=== PATIENT | male | born 1975 | race Caucasian/White ===

== ENCOUNTER 2017-09-12 21:40 | Emergency (ER) | payer OTHER ==
[2017-09-12 22:04] LABS: MUDS CUTOFF CONCENTRATIONS CUTOFF CONC BELOW:
[2017-09-12 22:06] LABS: BILIRUBIN,URINE NEGATIVE (NEGATIVE); GLUCOSE, URINE (UA) NEGATIVE (NEGATIVE); KETONES,URINE (UA) NEGATIVE (NEGATIVE); LEUKOCYTE ESTERASE, URINE NEGATIVE (NEGATIVE); NITRITE,URINE NEGATIVE (NEGATIVE); OCCULT BLOOD,URINE NEGATIVE (NEGATIVE); PROTEIN,URINE NEGATIVE (NEGATIVE); UROBILINOGEN,URINE 0.2 (NORMAL) E.U./dL (NORMAL)
[2017-09-12 22:08] LABS: CLARITY,URINE CLEAR (CLEAR)
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
[2017-09-12 22:16] LABS: BASOPHILS % (AUTO) 0.5 %; EOSINOPHILS # (AUTO) 0.1 10^3/uL (0.0-0.7); EOSINOPHILS % (AUTO) 2.7 %; HGB - HEMOGLOBIN 15.1 g/dL (14.0-18.0); LYMPHOCYTES # (AUTO) 2.1 10^3/uL (1.5-3.5); LYMPHOCYTES % (AUTO) 40.6 %; MEAN CORPUSCULAR HEMOGLOBIN 31.7 pg (27.0-31.0); MEAN CORPUSCULAR HGB CONC 34.1 g/dL (32.0-36.0); MEAN PLATELET VOLUME 9.5 fL (7.4-11.4); MONOCYTES # (AUTO) 0.4 10^3/uL (0.0-1.0); MONOCYTES % (AUTO) 7.8 %; NEUTROPHILS # (AUTO) 2.5 10^3/uL (1.5-6.6); NEUTROPHILS % (AUTO) 48.4 %; PLT - PLATELET COUNT 154 10^3/uL (130-450); RED BLOOD COUNT 4.77 10^6/uL (4.70-6.10); RED CELL DISTRIBUTION WIDTH 12.5 % (12.0-15.0); WHITE BLOOD COUNT 5.2 x10^3/uL (4.8-10.8)
[2017-09-12 22:17] LABS: AMPHETAMINE SCREEN,URINE NEGATIVE (NEGATIVE); BENZODIAZEPINES SCREEN, URINE NEGATIVE (NEGATIVE); COCAINE SCREEN URINE NEGATIVE (NEGATIVE); METHADONE SCREEN, URINE NEGATIVE (NEGATIVE); METHAMPHETAMINES SCREEN, URINE NEGATIVE (NEGATIVE); OPIATE SCREEN, URINE NEGATIVE (NEGATIVE); TRICYCLIC ANTIDEPRESSANT,URINE NEGATIVE (NEGATIVE)
[2017-09-12 22:18] LABS: OXYCODONE SCREEN, URINE NEGATIVE (NEGATIVE); PROPOXYPHENE SCREEN, URINE NEGATIVE (NEGATIVE)
[2017-09-12 22:49] LABS: ALBUMIN 4.3 g/dL (3.2-5.5); ALBUMIN/GLOBULIN RATIO 1.4 (1.0-2.2); ALKALINE PHOSPHATASE 41 IU/L (42-121); ALT ALANINE AMINOTRANSFERASE 15 IU/L (10-60); AST ASPARTATE AMINOTRANSFERASE 18 IU/L (10-42); BILIRUBIN,TOTAL 0.8 mg/dL (0.2-1.0); BUN - BLOOD UREA NITROGEN 15 mg/dL (6-20); CALCIUM 9.1 mg/dL (8.5-10.3); CARBON DIOXIDE - CO2 25 mmol/L (21-32); CHLORIDE 103 mmol/L (101-111); GFR - MDRD 82 (>89); GLUCOSE 88 mg/dL (70-100); LIPASE 31 U/L (22-51); SALICYLATE < 6.0 mg/dL; SODIUM 139 mmol/L (135-145); TOTAL PROTEIN 7.3 g/dL (6.7-8.2)
[2017-09-12 22:50] LABS: ACETAMINOPHEN < 10 ug/mL (10-30)
[2017-09-13 09:40] VITALS: BP 147/83
== END 2017-09-13 09:53 ==
LOC: EDUNIT# → ED 21:40
DX: R45.851 Suicidal ideations (principal); F32.9 Major depressive disorder, single episode, unspecified
CPT/HCPCS: 36415; 80053; 80306; 80307; 80320; 80329; 81001; 81003; 83690; 85025; 87086; 99283; 99284; 99285

== ENCOUNTER 2019-03-19 05:38 | Emergency (ER) | payer OTHER ==
--- NOTE | 2019-03-19 05:47 | ED Physician Documentation ---
PD HPI OPHTHO - Stated complaint Stated Complaint: RT EYE PAIN/REDNESS - History obtained from History obtained from: Patient - History of Present Illness Timing - onset: How many days ago (2) Timing - details: Gradual onset Location: Right Quality / character: Other (FB sensation) Associated symptoms: Redness, FB sensation Contributing factors: No: UV light (welding etc), Blunt trauma, Penetrating trauma, Wears glasses, Wears contacts Similar symptoms before: Has not had sx before Recently seen: Not recently seen - Additional information Additional information: c/o right eye FB sensation x 2 days. no injury and no recall of FB getting into the eye, although he does note that he was using chainsaw to cut wood 2 days ago prior to symptom onset. He was wearing eye protection. denies change in vision Review of Systems Eyes: reports: Irritation, Other (right eye FB sensation). denies: Loss of vision, Decreased vision, Photophobia, Discharge PD PAST MEDICAL HISTORY - Past Medical History Respiratory: Pneumonia - Past Surgical History Past Surgical History: No - Present Medications Home Medications: Ambulatory Orders Medication Instructions Recorded Confirmed Acetaminophen [Tylenol] 650 mg PO Q6H PRN 03/18/13 03/18/13 Ibuprofen [Motrin] 800 mg PO Q8H PRN 03/18/13 03/18/13 Multivitamin W/Minerals [Theragran 1 each PO DAILY 03/18/13 03/18/13 M] Prednisone 60 mg PO DAILY #12 tablet 03/18/13 guaiFENesin LIQUID [Robitussin] 100 mg PO Q6H 03/18/13 03/18/13 guaiFENesin/CODEINE [Robitussin AC] 10 ml PO Q6H PRN #120 ml 03/18/13 Hydrocodone/Acetaminophen 1 - 2 each PO Q6H PRN #10 tablet 03/19/19 [Hydrocodon-Acetaminophen 5-325] - Allergies Allergies/Adverse Reactions: Allergies Allergy/AdvReac Type Severity Reaction Status Date / Time No Known Drug Allergies Allergy Verified 03/18/13 11:36 - Social History Does the pt smoke?: No Smoking Status: Never smoker Does the pt drink ETOH?: Yes Does the pt have substance abuse?: No - Immunizations Immunizations are current?: Yes PD ED PE NORMAL - Vitals Vital signs reviewed: Yes - General General: Alert and oriented X 3, No acute distress, Well developed/nourished PD ED PE EXPANDED - HEENT HEENT Visual: 1 - deformity (fluorescein uptake (predominantly conjunctiva over sclera, but cornea also involved) - Eyes Eyes: Right eye, No eyelid FB (everted), Injected conj/sclera (lateral (temporal) aspect), Corneal abrasion, Fluorescein uptake, Anterior chambers clear. No: Eyelid erythema, Conj/sclera FB, Corneal FB, Corneal ulcer Results - Vitals Vitals: Vital Signs - 24 hr 03/19/19 05:46 Temperature 36.8 C Heart Rate 63 Respiratory 18 Rate Blood Pressure 163/87 H O2 Saturation 98 Oxygen O2 Source Room air PD MEDICAL DECISION MAKING - ED course Complexity details: considered differential, d/w patient Departure - Departure Disposition: 01 Home, Self Care Clinical Impression: Corneal abrasion Condition: Good Instructions: ED Eye Injury Corneal Abrasion [facility] Prescriptions: Hydrocodone/Acetaminophen [Hydrocodon-Acetaminophen 5-325] 1 - 2 each PO Q6H PRN #10 tablet PRN Reason: pain Comments: Use the antibiotic drops as follows: 1 drop in right eye three times per day for 5 days. Discharge Date/Time: 03/19/19 06:31
[2019-03-19 05:50] VITALS: BP 163/87
[2019-03-19] MEDS ORDERED: PROPARACAINE 0.5% OPHTH DROPS 15 ML RIGHTEYE STA (05:53)
[2019-03-19] MEDS ORDERED: HYDROcod/ACET 5/325 Prepack 4 PO STA (06:19)
[2019-03-19] MEDS ORDERED: POLYMYXIN B/TRIMETH OPHTH DROPS RIGHTEYE STA (06:19)
== END 2019-03-19 06:31 | disposition home or self-care (01) ==
LOC: ED 05:38
DX: S05.01XA Injury of conjunctiva and corneal abrasion without foreign body, right eye, initial encounter (principal); X58.XXXA Exposure to other specified factors, initial encounter
CPT/HCPCS: 99282; 99283; A9270; J3490